=== PATIENT | female | born 1985 | race Two or more races ===

== ENCOUNTER 2018-09-19 12:32 | Emergency (ER) | payer MEDICAID ==
[~2018-09-19] VITALS: Ht 160 cm; Wt 77.1 kg
[2018-09-19 12:44] VITALS: BP 132/80
[2018-09-19] MEDS ORDERED: Ketorolac 30mg Inj IM ONE (13:15)
[2018-09-19] MEDS ORDERED: Metoclopramide 10mg/2ml Inj IM ONE (13:15)
[2018-09-19] MEDS ORDERED: Ketorolac 30mg Inj IV ONE (13:30)
[2018-09-19 13:47] LABS: APPEARANCE,URINE CLEAR; BILIRUBIN, URINE NEGATIVE (NEGATIVE); COLOR,URINE PALE YELLOW; GLUCOSE, URINE (UA) NEGATIVE (NEGATIVE); KETONES,URINE NEGATIVE (NEGATIVE); LEUKOCYTE ESTERASE ,URINE 1+ (NEGATIVE); NITRITE,URINE NEGATIVE (NEGATIVE); PH,URINE 6 (4.5-8.0); PROTEIN,URINE NEGATIVE (NEGATIVE); UROBILINOGEN,URINE NORMAL MG/DL (0.0-1.0)
--- NOTE | 2018-09-19 13:52 | Emergency Room Report ---
History of Present Illness General Chief Complaint: Headache Source: Patient Present Illness HPI 33-year-old female presents to the emergency department complaining of 10 out of 10 in severity headache with associated dizziness that was progressive onset. Patient reports that she's been suffering from posterior neck pain and LAWRENCE's for 6 months and was recently prescribed baclofen she took several of the pills and states that she self discontinued because she didn't like how sleepy they made her feel. Patient presents today because when at work she began having some weakness and dizziness as well as progression of her headache. Patient denies nausea vomiting, fevers or chills. Patient does report some photophobia she states that her headache is tight and bandlike around her head. Patient denies history of migraines she denies and states that she is just began her menstrual cycle on the fifth. Denies unilateral weakness or paresthesias. Denies head trauma or fall. Denies significant difference in characteristic of current LAWRENCE compared to previously experienced LAWRENCE's except for no response to Advil. Pt. denies CP, palpitations or syncope. pt. denies dysuria , urinary frequency or . denies neck stiffness. Pt. states mother has hx of LAWRENCE's. Allergies: Coded Allergies: No Known Allergies (Unverified , 09/19/18) Patient History Past Medical History: see triage record Past Surgical History: none Pertinent Family History: none Last Menstrual Period: 09/16/18 Now: No Reviewed Nursing Documentation: PMH: Agreed; PSxH: Agreed Nursing Documentation-PMH Past Medical History: No Stated History Review of Systems All Other Systems: negative except mentioned in HPI Physical Exam Vital Signs Date Time Temp Pulse Resp B/P (MAP) Pulse Ox O2 Delivery O2 Flow Rate FiO2 09/19/18 12:30 98.2 88 18 129/84 99 Room Air Sp02 EP Interpretation: reviewed, normal General Appearance: no apparent distress, alert, GCS 15, non-toxic, mild distress Head: normocephalic, atraumatic Eyes: bilateral eye normal inspection, bilateral eye PERRL, bilateral eye photophobia ENT: hearing grossly normal, normal voice Neck: full range of motion, no meningismus, no bony tend Respiratory: chest non-tender, lungs clear, normal breath sounds, no wheezing, speaking full sentences Cardiovascular #1: regular rate, rhythm Gastrointestinal: non tender, soft Musculoskeletal: back normal, gait/station normal, normal range of motion, non- tender Neurologic: alert, oriented x3, responsive, motor strength/tone normal, sensory intact, speech normal, no pronator, other - no nystagmus, grossly normal Psychiatric: judgement/insight normal Skin: normal color, no rash, warm/dry, well hydrated Medical Decision Making PA Attestation Dr. fan is my supervising Physician whom patient management has been discussed with. Diagnostic Impression: Primary Impression: Headache Qualified Codes: G44.209 - Tension-type headache, unspecified, not intractable ER Course 33-year-old female presents to the emergency department complaining of 10 out of 10 in severity headache with associated dizziness that was progressive onset. Patient reports that she's been suffering from posterior neck pain and LAWRENCE's for 6 months and was recently prescribed baclofen she took several of the pills and states that she self discontinued because she didn't like how sleepy they made her feel. Patient presents today because when at work she began having some weakness and dizziness as well as progression of her headache. Patient denies nausea vomiting, fevers or chills. Patient does report some photophobia she states that her headache is tight and bandlike around her head. Patient denies history of migraines she denies and states that she is just began her menstrual cycle on the fifth. Denies unilateral weakness or paresthesias. Denies head trauma or fall. Denies significant difference in characteristic of current LAWRENCE compared to previously experienced LAWRENCE's except for no response to Advil. Pt. denies CP, palpitations or syncope. pt. denies dysuria , urinary frequency or . denies neck stiffness. Pt. states mother has hx of LAWRENCE's. Ddx considered but are not limited to migraine, SAH, Pseudomotor Cerebri,, Mass lesion, Cluster LAWRENCE, Tension LAWRENCE, Post lumbar puncture LAWRENCE, UTI, meningitis, dissection just to name a few. Vital signs: are WNL, pt. is afebrile H&PE are most consistent with migraine versus tension headache, and no focal neurological deficits. ORDERS: - UA: unremarkable- consistent with being on menses. - EK NSR ED INTERVENTIONS: -Reglan IM -IV Toradol -1 liter NS IV -Fioricet Pt. has complete resolution of her symptoms. she is much more engaged with conversations and no longer has photophobia. -I do not identify an emergent condition at this time. With current presentation , pt. is stable for close outpatient follow up and conservative treatment. D/ w pt. to return promptly to ED with worsening or new symptoms.- Pt. verbalizes' understanding and agreement with proposed treatment plan.proposed treatment plan. DISCHARGE: At this time pt. is stable for d/c to home. Will provide printed patient care instructions, and any necessary prescriptions. Care plan and follow up instructions have been discussed with the patient prior to discharge. EKG Diagnostic Results EP Interpretation: Dr. Bauman Rate: normal - 66bpm Rhythm: NSR ST Segments: other - incomplete RBBB ASA given to the pt in ED: No PA Scribe Text This Interpretation was scribed by GATO Galaviz. Last Vital Signs Date Time Temp Pulse Resp B/P (MAP) Pulse Ox O2 Delivery O2 Flow Rate FiO2 09/19/18 12:44 98.0 75 19 132/80 100 Room Air Status: improved Disposition: HOME, SELF-CARE Condition: Stable Scripts Acetamin/Butalbital/Caffeine* (FIORICET*) 1 Ea Tab 1 TAB ORAL Q6H, #15 TAB 0 Refills Prov: Radha Galaviz 09/19/18 Referrals: Acosta Kimble M.D. (PCP) Departure Forms: Return to Work Return to Work Date: Sep 21, 2018 Work Restrictions: None Return to Full Activity: Sep 21, 2018 Patient Instructions: Tension Headache, Migraine Headache Additional Instructions: Take medications as directed. Follow up with a Primary Care Provider in 3-5 days For a referral to have NEUROLOGIST Evaluation, even if your symptoms have resolved. --Please review list of primary care clinics, if you do not already have a primary care provider Return sooner to ED if new symptoms occur, or current symptoms become worse. - Please note that this Emergency Department Report was dictated using [employer] room helper technology software, occasionally this can lead to erroneous entry secondary to interpretation by the dictation equipment. Radha Galaviz Sep 19, 2018 13:52
[2018-09-19] MEDS ORDERED: FIORICET1 EA ORAL (15:23)
[2018-09-19 15:34] VITALS: BP 126/74
--- NOTE | 2018-09-20 12:28 | Cardiology Report ---
APPROVED REPORT EKG Measurement Heart [id number] Normal sinus rhythm Incomplete right bundle branch block Borderline ECG
== END 2018-09-19 15:34 | disposition home or self-care (01) ==
LOC: EDBD 12:32 → EMR 12:51
DX: G44.209 Tension-type headache, unspecified, not intractable (principal); I45.10 Unspecified right bundle-branch block
CPT/HCPCS: 81003; 93005; 96361; 96372; 96374; 99284; J1885; J2765